=== PATIENT | female | born 1980 | race Caucasian/White ===

== ENCOUNTER → 2016-09-24 | Day surgery (SDC) | payer BC ==
[~2016-09-24] VITALS: Ht 167.6 cm; Wt 80.9 kg
[~2016-09-24] MED LIST: ACETAMINOPHEN 1000 MG/100 ML VIAL IV SCH; CHLORHEXIDINE GLUCONATE 2 % 1 PACK (2 CLOTHS) TOPICAL PRN; DO NOT ADM ANY ANTICOAGULANT DRUGS PRN; FAMOTIDINE 20 MG/2 ML VIAL ONE; INSULIN HUMAN REGULAR 1,000 UNITS/10 ML VIAL SQ PRN; KETOROLAC TROMETHAMINE 60 MG/2 ML (IM) VIAL IM ONE; LACTATED RINGER'S 1000 ML IV PRN; METOCLOPRAMIDE HCL 10 MG/2 ML VIAL IV PRN; METOPROLOL TARTRATE 25 MG TAB PO PRN; MIDAZOLAM HCL 2 MG/2 ML VIAL ONE; ONDANSETRON HCL 4 MG/2 ML VIAL IV PUSH ONE; OXYC1SOL5 PO; OXYTOCIN 10 UNIT/ML AMP ONE; POVIDONE IODINE 5% (ANTISEPSIS KIT) 4 APPLICATIONS EACH NARE PRN; PRENCAP10 PO; PRENCHW; PROPOFOL 200 MG/20 ML AMP IV ONE; SODIUM CHLORID 0.9% 500 ML IV PRN; ceFAZolin 1,000 MG/NS 100 ML IV SCH; fentaNYL CITRATE 250 MCG/5 ML AMP ONE
[2016-09-24 12:03] VITALS: BP 111/71; PULSE 80; RESP 20; TEMP 98.4; O2SAT 100
[2016-09-24 12:19] LABS: AUTOMATED NEUTROPHIL # 5.2 TH/MM3 (1.8-7.7); BASOPHIL % 0.3 % (0.0-2.0); EOSINOPHIL # 0.2 TH/MM3 (0-0.4); EOSINOPHIL % 2.3 % (0.0-4.0); HEMATOCRIT 36.6 % (35.0-46.0); HEMO FLAGS DIFF FINAL; LYMPHOCYTE # 2.1 TH/MM3 (1.0-4.8); MEAN CELL VOLUME 88.2 FL (80.0-100.0); MEAN CORPUSCULAR HEMOGLOBIN 30.6 PG (27.0-34.0); MEAN CORPUSCULAR HGB CONC 34.7 % (32.0-36.0); MONO % 5.9 % (0.0-8.0); NEUT % 65.5 % (16.0-70.0); PLATELET COUNT 214 TH/MM3 (150-450); RED BLOOD COUNT 4.15 MIL/MM3 (4.00-5.30); RED CELL DISTRIBUTION WIDTH 12.7 % (11.6-17.2)
[2016-09-24 12:34] LABS: BACTERIA, URINE RARE /hpf; COMMENT (UR) CULT NOT INDICATED; CULTURE IF INDICATED CULT NOT INDICATED; MUCUS URINE FEW /lpf (OCC); SQUAMOUS EPITHELIAL CELL URINE 5 /hpf (0-5)
[2016-09-24 12:37] LABS: GLUCOSE,URINE NEG (NEG); URINE COLOR YELLOW (YELLW/STRAW)
[2016-09-24 12:38] LABS: BLOOD, URINE NEG (NEG); KETONE, URINE NEG (NEG); NITRITE,URINE NEG (NEG)
--- NOTE | 2016-09-24 13:10 | MH ---
cc: RUDDY ROBINS DATE OF ADMISSION: 09/24/2016 DATE OF : 1980 ADMITTING DIAGNOSIS Spontaneous at 7-8 weeks gestation. HISTORY OF PRESENT ILLNESS The patient is a 36-year-old female para 1-0-1-1 with an LMP of 07/14/2016. Ultrasound on 09/02/2016 showed a VIP of six weeks and seven days. A follow-up ultrasound on 09/23/2016 showed demise at seven weeks and one day. She is now admitted for a D&C. PAST MEDICAL HISTORY PREVIOUS SURGERY She had a D&C for miscarriage in 2013, had a in 2014. MEDICATIONS 1. Vitamins. 2. Progesterone. ALLERGIES SHELLFISH. SERIOUS MEDICAL ILLNESSES Fracture left upper extremity age 3, did not require surgery. SOCIAL HISTORY She is . She is a dentist. Alcohol, tobacco and drugs are none. FAMILY HISTORY Noncontributory. PHYSICAL EXAMINATION GENERAL: A well-nourished, well-developed female. VITAL SIGNS: Stable. HEENT: Exam is normal. CHEST: Clear. HEART: Regular rate. BREASTS: Symmetrical. ABDOMEN: Benign. PELVIC: Normal external genitalia and BUS. Vagina is normal. Cervix is normal. She is 8 weeks size, nontender. ASSESSMENT As above. PLAN She is now admitted for outpatient D&C. While in the office I explained the procedures, the risks, benefits and complications. The patient elected to proceed. MD VINCENT Denise/KORTNEY /1:45 PM /1:09 PM
[2016-09-24 15:10] VITALS: BP 106/68; PULSE 75; RESP 16; TEMP 98; O2SAT 100
--- NOTE | 2016-09-25 07:04 | MP ---
cc: RUDDY ROBINS DATE OF SURGERY 09/24/2016 ADMISSION DIAGNOSIS demise at 7-8 weeks. POSTOPERATIVE DIAGNOSIS demise at 7-8 weeks. PROCEDURE A suction and sharp D&C. ANESTHESIA General LMA ESTIMATED BLOOD LOSS 100 cc FLUIDS 600 cc Crystalloid OBJECTIVE FINDINGS Following induction of adequate general LMA anesthesia, the patient was prepped and draped supine on the operating table dorsolithotomy position in the usual sterile fashion with the bladder being drained via in and out catheterization. Exam under anesthesia revealed a 7-8 week sized uterus. No adnexal masses. A heavy weighted speculum was placed in the posterior fornix of the vagina. The anterior lip of the cervix grasped with a single-toothed tenaculum. Cervix and uterus sounded to 9 cm. The cervix was then dilated to #18 Hanks dilator. A #8 suction curette was passed to remove POC-like material followed by a small sharp curette to dislodge adherent tissue. The curette was passed again to potato picker lose debris. All instruments removed. All counts were correct. The patient's legs taken out of the stirrups. She was awakened and taken to the recovery room in good condition. MD VINCENT Denise/YUNG /9:21 PM /7:00 AM
== END | disposition home or self-care (01) ==
LOC: HSDC 10:59
PROVIDERS: ATTEND Obstetrics & Gynecology
DX: O03.4 Incomplete spontaneous abortion without complication (principal)
CPT/HCPCS: 01965; 59812; 81001; 85025; 86850; 86900; 86901; 88305; J0131; J0690; J1885; J2250; J2405; J2590; J3010; 88235; 88267; 88291

== ENCOUNTER 2017-05-07 00:35 | Emergency (ER) | payer BC ==
[~2017-05-07] VITALS: Ht 167.6 cm; Wt 80.0 kg
[~2017-05-07 00:35] MED LIST changes: -ACETAMINOPHEN 1000 MG/100 ML VIAL IV SCH; -CHLORHEXIDINE GLUCONATE 2 % 1 PACK (2 CLOTHS) TOPICAL PRN; -DO NOT ADM ANY ANTICOAGULANT DRUGS PRN; -FAMOTIDINE 20 MG/2 ML VIAL ONE; -INSULIN HUMAN REGULAR 1,000 UNITS/10 ML VIAL SQ PRN; -KETOROLAC TROMETHAMINE 60 MG/2 ML (IM) VIAL IM ONE; -LACTATED RINGER'S 1000 ML IV PRN; -METOCLOPRAMIDE HCL 10 MG/2 ML VIAL IV PRN; -METOPROLOL TARTRATE 25 MG TAB PO PRN; -MIDAZOLAM HCL 2 MG/2 ML VIAL ONE; -ONDANSETRON HCL 4 MG/2 ML VIAL IV PUSH ONE; -OXYC1SOL5 PO; -OXYTOCIN 10 UNIT/ML AMP ONE; -POVIDONE IODINE 5% (ANTISEPSIS KIT) 4 APPLICATIONS EACH NARE PRN; -PRENCAP10 PO; -PROPOFOL 200 MG/20 ML AMP IV ONE; -SODIUM CHLORID 0.9% 500 ML IV PRN; -ceFAZolin 1,000 MG/NS 100 ML IV SCH; -fentaNYL CITRATE 250 MCG/5 ML AMP ONE
[2017-05-07 00:38] VITALS: BP 144/74; PULSE 90; RESP 16; TEMP 99; O2SAT 100
[2017-05-07] MEDS ORDERED: PROG100C PO (00:42)
[2017-05-07] MEDS ORDERED: SODIUM CHLOR 0.9% 1000 ML INJ 1,000 ML IV ONE (00:52)
--- NOTE | 2017-05-07 01:10 | PD ---
HPI Chief Complaint: Skirt Clipper Problem/Complaint Time Seen by Provider: 00:49 Travel History International Travel<30 days: No Contact w/Intl Traveler<30days: No Traveled to known affect area: No History of Present Illness HPI The patient is a 36 year old female with 2 prior miscarriages who presents to the [facility] emergency department with a history of vaginal spotting that she first noticed at midnight when she got up to go to the bathroom and wiped. She denies having any abdominal pain associated with this. She reports that she last had sex on Friday night. She reports that she did have a slight amount of spotting at that time. She reports that her WINE STEWARD/STEWARDESS is Dr. Ej ruiz. She reports that her last menstrual cycle was March 27 2017. She reports that she is on progesterone to support the . She reports that her last quantitative beta-hCG did go up compared to the prior one. She reports that over the last 2 days she has had increased nausea that she thought was related to the . She also reports that she has associated breast tenderness. On review of systems otherwise, she denies any recent fevers, cough, congestion, neck pain, chest pain, shortness of breath, vomiting, diarrhea, urinary symptoms, or neurologic symptoms. [facility] Past Medical History Narrative Medical The patient's past medical history is reportedly none. Medical History: Denies Significant Hx Cancer: No Cardiovascular Problems: No Diabetes: No Diminished Hearing: No Endocrine: No Genitourinary: No Hepatitis: No Hiatal Hernia: No Immune Disorder: No Musculoskeletal: No Neurologic: No Psychiatric: No Respiratory: No Thyroid Disease: No Tetanus Vaccination: < 5 Years ?: LMP: 03/27/2017 6 weeks Dilation and Curettage (D&C): Yes Past Surgical History Narrative Surgical The patient's past surgical history is significant for Lasik eye surgery, C- section 1, D&C 2. Section: Yes Eye Surgery: Yes (LASIK) Gynecologic Surgery: Yes (D&C, C section) Joint Replacement: No Pacemaker: No Social History Alcohol Use: No Tobacco Use: No Substance Use: No Allergies-Medications (Allergen,Severity, Reaction): Coded Allergies: cat dander (Unverified Allergy, Severe, HIVES, 05/07/17) dog dander (Unverified Allergy, Severe, HIVES, 05/07/17) shellfish derived (Unverified Allergy, Severe, HIVES, 05/07/17) Reported Meds & Prescriptions Reported Meds & Active Scripts Active Reported Progesterone Micronized 100 Mg Cap 100 Mg PO BID 19 ( Vit W/ Ferrous Fumara) 1 Chw Chw Review of Systems Except as stated in HPI: all other systems reviewed are Neg General / Constitutional: No: Fever Eyes: No: Visual changes HENT: No: Headaches Cardiovascular: No: Chest Pain or Discomfort Respiratory: No: Shortness of Breath Gastrointestinal: Positive: Nausea, No: Vomiting, Diarrhea, Abdominal Pain Genitourinary: Positive: Vaginal Bleeding, No: Dysuria Musculoskeletal: No: Pain Skin: No Rash Neurologic: No: Weakness Psychiatric: No: Depression Endocrine: No: Polydipsia Hematologic/Lymphatic: No: Easy Bruising Physical Exam Narrative General: The patient is a well-developed well-nourished female in no acute distress. Head and Neck exam: Head is normocephalic atraumatic. Eyes: EOMI, pupils are equal round and reactive to light. Nose: Midline septum with pink mucous membranes Mouth: Dentition unremarkable. Moist mucus membranes. Posterior oropharynx is not erythematous. No tonsillar hypertrophy. Uvula midline. Airway patent. Neck: No palpable lymphadenopathy. No nuchal rigidity. No thyromegaly. Cardiovascular: Regular rate and rhythm without murmurs, gallops, or rubs. Lungs: Clear to auscultation bilaterally. No wheezes, rhonchi, or rales. Abdomen: Soft, without tenderness to palpation in all 4 quadrants of the abdomen. No guarding, rebound, or rigidity. Normal bowel sounds are audible. No tenderness on palpation of McBurney's point. Extremities: No clubbing, cyanosis, or edema. Tenderness on palpation. Back: No costovertebral angle tenderness to palpation. Neurologic Exam: Grossly nonfocal. Skin Exam: No rash noted. Intact skin that is warm and dry. Gynecologic exam: The patient was placed in the dorsal lithotomy position. Her external genitalia were examined. She had no evidence of rash or lesions. The speculum was placed into her vagina and the cervix was identified. She had a scant amount of older appearing blood in the posterior vaginal vault. No cervical friability. On Bimanual exam: she has no cervical motion tenderness. No adnexal tenderness or prominence noted on palpation. The patient's uterus is slightly enlarged palpation, nontender on palpation. Data Data Last Documented VS Vital Signs Date Time Temp Pulse Resp B/P (MAP) Pulse Ox O2 Delivery O2 Flow Rate FiO2 05/07/17 00:38 99.0 90 16 144/74 (97) 100 Orders Orders Beta Hcg (Quant/Titer) (05/07/17 00:52) Complete Blood Count With Diff (05/07/17 00:52) Comprehensive Metabolic Panel (05/07/17 00:52) Gc And Chlamydia Pcr (05/07/17 00:52) Complete Rh (05/07/17 00:52) Us Pelvis (Ques Pr/Ect)W Trans (05/07/17 ) Wet Prep Profile (05/07/17 00:52) Urinalysis - C+S If Indicated (05/07/17 00:52) Iv Access Insert/Monitor (05/07/17 00:52) Ecg Monitoring (05/07/17 00:52) Sodium Chlor 0.9% 1000 Ml Inj (Ns 1000 M (05/07/17 00:52) Ed Urine Pregnancytest Poc (05/07/17 00:52) Ed Discharge Order (05/07/17 04:42) Labs Laboratory Tests Test 05/07/17 01:15 05/07/17 01:25 White Blood Count 8.2 TH/MM3 Red Blood Count 4.09 MIL/MM3 Hemoglobin 12.6 GM/DL Hematocrit 37.1 % Mean Corpuscular Volume 90.7 FL Mean Corpuscular Hemoglobin 30.9 PG Mean Corpuscular Hemoglobin Concent 34.1 % Red Cell Distribution Width 12.9 % Platelet Count 169 TH/MM3 Mean Platelet Volume 9.8 FL Neutrophils (%) (Auto) 62.4 % Lymphocytes (%) (Auto) 24.6 % Monocytes (%) (Auto) 9.9 % Eosinophils (%) (Auto) 2.7 % Basophils (%) (Auto) 0.4 % Neutrophils # (Auto) 5.1 TH/MM3 Lymphocytes # (Auto) 2.0 TH/MM3 Monocytes # (Auto) 0.8 TH/MM3 Eosinophils # (Auto) 0.2 TH/MM3 Basophils # (Auto) 0.0 TH/MM3 CBC Comment DIFF FINAL Differential Comment Urine Color YELLOW Urine Turbidity CLEAR Urine pH 6.5 Urine Specific [place] 1.023 Urine Protein TRACE mg/dL Urine Glucose (UA) NEG mg/dL Urine Ketones NEG mg/dL Urine Occult Blood MOD Urine Nitrite NEG Urine Bilirubin NEG Urine Urobilinogen LESS THAN 2.0 MG/DL Urine Leukocyte Esterase TRACE Urine RBC 13 /hpf Urine WBC 1 /hpf Urine Squamous Epithelial Cells 1 /hpf Urine Mucus FEW /lpf Microscopic Urinalysis Comment CULT NOT INDICATED Blood Urea Nitrogen 11 MG/DL Creatinine 0.80 MG/DL Random Glucose 108 MG/DL Total Protein 6.8 GM/DL Albumin 3.1 GM/DL Calcium Level 8.4 MG/DL Alkaline Phosphatase 71 U/L Aspartate Amino Transf (AST/SGOT) 17 U/L Alanine Aminotransferase (ALT/SGPT) 23 U/L Total Bilirubin 0.2 MG/DL Sodium Level 138 MEQ/L Potassium Level 3.6 MEQ/L Chloride Level 104 MEQ/L Carbon Dioxide Level 26.5 MEQ/L Anion Gap 8 MEQ/L Estimat Glomerular Filtration Rate 81 ML/MIN Human Chorionic Gonadotropin, Quant 04478 MIU/ML Clue Cells (Wet Prep) NONE SEEN Vaginal Trichomonas (Wet Prep) NONE SEEN Vaginal Yeast (Wet Prep) NONE SEEN Chlamydia trachomatis DNA (PCR) NOT DETECTED Neisseria gonorrhoeae DNA (PCR) NOT DETECTED MDM Medical Decision Making Medical Screen Exam Complete: Yes Emergency Medical Condition: Yes Medical Record Reviewed: Yes Differential Diagnosis Ectopic , versus threatened miscarriage, versus postcoital bleeding, versus subchorionic hemorrhage Narrative Course During the course of the patients emergency department visit, the patients history, examination, and differential diagnosis were reviewed with the patient. The patient was placed on a patient monitor with oximetry and frequent blood pressure monitoring. The patient had IV access obtained and blood work sent for analysis. A bedside test was positive. A quantitative beta hCG was also ordered. An ultrasound to rule out ectopic has been ordered. The patient was initially provided normal saline 1 L IV fluid bolus. The patients laboratory studies were reviewed and remarkable for white count of 8.2, hemoglobin 12.6, platelets 169 with 9.9 monocytes, CMP is remarkable for a GFR of 81, glucose 108, calcium 8.4, quantitative beta hCG 17,047, urinalysis showed moderate occult blood, 13 RBCs, wet prep is negative. Radiology studies were reviewed and remarkable for an ultrasound of the pelvis that shows an early viable intrauterine with a small subchorionic hemorrhage, left ovarian corpus luteal cyst, heart rate is 126, 5 week 6 day gestational age. The patient is instructed on bed rest and pelvic rest. The patient's blood type was noted to be Rh+, therefore RhoGAM was not indicated. The patient is instructed regarding the importance of close follow-up with her WINE STEWARD/STEWARDESS. The patient is resting comfortably and feels better, is alert and in no distress. The patients results and examination findings were discussed with the patient. The repeat examination is unremarkable and benign. The history, exam, diagnostic testing, and current condition do not suggest any significant pathology to warrant further testing, continued ED treatment, admission, or surgical evaluation at this point. The vital signs have been stable. The patient does not have uncontrollable pain, intractable vomiting, or other significant symptoms. The patient's condition is stable and appropriate for discharge. The patient will pursue further outpatient evaluation with a primary care physician or other designated or consulting physician as indicated in the discharge instructions. The patient expressed understanding and was agreeable with this plan. Diagnosis Primary Impression: Threatened miscarriage in early Additional Impression: Subchorionic bleed Qualified Codes: O41.8X10 - Other specified disorders of amniotic fluid and membranes, first trimester, not applicable or unspecified; O46.8X1 - Other antepartum hemorrhage, first trimester Referrals: Branding Specialist 2 days Patient Instructions: General Instructions, Threatened Miscarriage (ED) Departure Forms: Tests/Procedures, Work Release Enter return to work date: May 14, 2017 Additional Instructions: The patient is instructed on bed rest and pelvic rest. Med/Other Pt SpecificInfo: No Change to Meds Disposition: 01 DISCHARGE HOME Condition: Stable Candy Chinchilla MD May 07, 2017 01:10
[2017-05-07 01:33] LABS: AUTOMATED NEUTROPHIL # 5.1 TH/MM3 (1.8-7.7); BASOPHIL % 0.4 % (0.0-2.0); EOSINOPHIL # 0.2 TH/MM3 (0-0.4); EOSINOPHIL % 2.7 % (0.0-4.0); HEMATOCRIT 37.1 % (35.0-46.0); HEMO FLAGS DIFF FINAL; LYMPH % 24.6 % (9.0-44.0); MEAN CELL VOLUME 90.7 FL (80.0-100.0); MEAN CORPUSCULAR HEMOGLOBIN 30.9 PG (27.0-34.0); MEAN CORPUSCULAR HGB CONC 34.1 % (32.0-36.0); MONO % 9.9 % (0.0-8.0); NEUT % 62.4 % (16.0-70.0); PLATELET COUNT 169 TH/MM3 (150-450); RED BLOOD COUNT 4.09 MIL/MM3 (4.00-5.30); RED CELL DISTRIBUTION WIDTH 12.9 % (11.6-17.2); WHITE BLOOD COUNT 8.2 TH/MM3 (4.0-11.0)
[2017-05-07 01:36] LABS: BLOOD, URINE MOD (NEG); COMMENT (UR) CULT NOT INDICATED; CULTURE IF INDICATED CULT NOT INDICATED; GLUCOSE,URINE NEG (NEG); KETONE, URINE NEG (NEG); MUCUS URINE FEW /lpf (OCC); NITRITE,URINE NEG (NEG); PH, URINE 6.5 (5.0-8.5); SQUAMOUS EPITHELIAL CELL URINE 1 /hpf (0-5); URINE COLOR YELLOW (YELLW/STRAW)
[2017-05-07 01:51] LABS: ALT (GPT) 23 U/L (10-53); ANION GAP 8 MEQ/L (5-15); AST (GOT) 17 U/L (15-37); BICARBONATE 26.5 MEQ/L (21.0-32.0); BLOOD UREA NITROGEN 11 MG/DL (7-18); CHLORIDE 104 MEQ/L (98-107); GLOMERULAR FILTRATION RATE 81 ML/MIN (>89); POTASSIUM 3.6 MEQ/L (3.5-5.1); SODIUM (NA) 138 MEQ/L (136-145)
[2017-05-07 02:08] LABS: ALKALINE PHOSPHATASE 71 U/L (45-117); BETA HCG QUANT 17047 MIU/ML (0-5); TOTAL BILIRUBIN ADULT 0.2 MG/DL (0.2-1.0)
[2017-05-07 03:18] LABS: CHLAMYDIA PCR NOT DETECTED (NOT DETECT); NEISSERIA PCR NOT DETECTED (NOT DETECT)
--- NOTE | 2017-05-07 04:40 | RADRPT ---
EXAM DATE/TIME: 05/07/2017 03:25 [place] COMPARISON: No previous studies available for comparison. INDICATIONS : Bleeding with . LAB(S): Beta-hC MEDICAL HISTORY : . Miscarriage x 2. SURGICAL HISTORY : section. Dilation and curettage x 2. Lasik. ENCOUNTER: Initial ACUITY: 1 day PAIN SCORE: 0/10 LOCATION: Bilateral pelvis MEASUREMENTS: UTERUS: 8.6 x 7.6 x 4.4 cm ENDOMETRIAL STRIPE: 17 mm RIGHT OVARY: 2.8 x 2.6 x 1.9 cm LEFT OVARY: 3.5 x 2.9 x 1.8 cm FREE FLUID: Yes Trace in posterior cul de sac and adjacent to the left ovary. CROWN RUMP LENGTH: 0.28 cm = 5 WKS 6 DAYS FHR: 126 BPM FINDINGS: UTERUS: Gestational sac, yolk sac and pole seen within the uterine cavity. pole is approximately 2.8 mm which corresponds to a gestational age of 5 weeks 6 days. There is an approximately 16mm heter ogeneous fluid collection adjacent to the gestational sac. RIGHT OVARY: Normal. LEFT OVARY: 9 mm cyst, probably a corpus luteal cyst. MISCELLANEOUS: Trace fluid in the posterior cul-de-sac. CONCLUSION: 1. Early, viable intrauterine with a small subchorionic hemorrhage. 2. No evidence of ectopic or other acute adnexal abnormality demonstrated. 9 mm left ovary corpus lut eal cyst. Poli Rios MD on May 07, 2017 at 4:36 Board Certified Radiologist. This report was verified electronically.
[2017-05-07 05:04] VITALS: BP 134/70; PULSE 72; RESP 18; O2SAT 99
== END 2017-05-07 05:05 | disposition home or self-care (01) ==
LOC: NEPE 00:35
DX: O20.0 Threatened abortion (principal); R11.0 Nausea; O09.521 Supervision of elderly multigravida, first trimester; Z3A.01 Less than 8 weeks gestation of pregnancy
CPT/HCPCS: 76700; 76817; 80053; 81001; 84702; 84703; 85025; 86901; 87210; 87491; 87591; 99285; J7030

== ENCOUNTER → 2017-06-25 | Outpatient (CLI) | payer BC ==
[~2017-06-25] MED LIST changes: +PROG100C PO
== END ==
LOC: HPND 08:55
PROVIDERS: ATTEND Obstetrics & Gynecology
DX: O09.521 Supervision of elderly multigravida, first trimester (principal); O34.211 Maternal care for low transverse scar from previous cesarean delivery; O26.21 Pregnancy care for patient with recurrent pregnancy loss, first trimester; Z36.82 Encounter for antenatal screening for nuchal translucency
CPT/HCPCS: 36415; 76813

== ENCOUNTER 2017-12-25 14:59 | Inpatient (IN) ==
[~2017-12-25 14:59] MED LIST changes: +Ketorolac Inj 30 MG/ML (IVP) Vial IV.PUSH ONE; -PRENCHW; -PROG100C PO; +Phenylephrine/NS 1000 MCG/10ML Syringe IV.PUSH ONE
[2017-12-25 16:08] LABS: Baso % (Auto) 0.3 % (0.0-2.0); Eos % (Auto) 0.4 % (0.0-4.0); Hematocrit 36.7 % (35.0-46.0); Hemoglobin 12.5 gm/dL (11.6-15.3); Lymph # (Auto) 1.7 th/mm3 (1.0-4.8); Lymph % (Auto) 17.2 % (9.0-44.0); Mean Corpuscular HGB Conc 33.9 % (32.0-36.0); Mean Corpuscular Hemoglobin 31.3 pg (27.0-34.0); Mean Corpuscular Volume 92.2 fL (80.0-100.0); Mean Platelet Volume 8.8 fL (7.0-11.0); Mono # (Auto) 0.6 th/mm3 (0.0-0.9); Mono % (Auto) 6.3 % (0.0-8.0); Neut # (Auto) 7.5 th/mm3 (1.8-7.7); Neut % (Auto) 75.8 % (16.0-70.0); Platelet Count 195 th/mm3 (150-450); Red Blood Count 3.98 mil/mm3 (4.00-5.30); Red Cell Distribution Width 14.7 % (11.6-17.2); White Blood Count 9.9 th/mm3 (4.0-11.0)
[2017-12-25 16:14] LABS: Bilirubin,Urine Negative (Negative); Clarity,Urine Hazy (Clear); Color,Urine Yellow (Yellw/Straw); Glucose,Urine (UA) Negative (Negative); Leukocyte Esterase,Urine Negative (Negative); Mucus,Urine Few /lpf (Occasional); Nitrite,Urine Negative (Negative); Specific Gravity,Urine 1.026 (1.002-1.035); Squamous Epithelial Cell,Urine 1 /hpf (0-5)
[2017-12-25 16:26] LABS: Amphetamine Screen,Urine Neg (Neg); Barbiturate Screen,Urine Neg (Neg); Cannabinoid Screen,Urine Neg (Neg); Cocaine Screen,Urine Neg (Neg)
[2017-12-25 16:36] LABS: Opiate Screen,Urine Neg (Neg)
[2017-12-25] MEDS ORDERED: fentaNYL Citrate Inj 100 MCG/2 ML Ampul ONE (16:46)
[2017-12-25] MEDS ORDERED: Morphine Sulfate PF Inj 5 MG/10 ML Ampul ONE (16:46)
[2017-12-25] MEDS ORDERED: Citric Acid/Sodium Citrate Liq 30 ML UDC PO SCH (17:00)
[2017-12-25] MEDS ORDERED: ceFAZolin 2 GM Premix Inj 2 GM/50 ML PIGGYBACK IV.SIG SCH (17:00)
--- NOTE | 2017-12-25 18:38 | MP ---
cc: Poli Hathaway MD, John A MD DATE OF OPERATION: 12/25/2017 PREOPERATIVE DIAGNOSES: 1. Term . 2. Previous section. 3. Advanced maternal age. 4. Multiparity. POSTOPERATIVE DIAGNOSES: 1. Term . 2. Previous section. 3. Advanced maternal age. 4. Multiparity. 5. Delivered. PROCEDURE PERFORMED: Repeat low transverse section with a bilateral tubal interruption. ANESTHESIA: Spinal. SURGEON: Poli Hathaway MD CAFETERIA MONITOR: Mare Jaramillo. ESTIMATED BLOOD LOSS: About 600 mL FLUIDS: About 2 liters crystalloid. OBJECTIVE FINDINGS: Following induction of adequate spinal anesthesia, the patient was prepped and draped supine on the operating table in left lateral tilt position usual sterile fashion, with the bladder being drained by Pollack catheterization. The abdomen was opened through a Pfannenstiel incision using a knife to cut down through the skin to the fascia excising her old scar in the process. The fascia was opened transversely, stripped from the muscles, rectus muscle split in the midline and the peritoneum opened sharply without incident. The bladder flap was taken down sharply and retracted inferior with the Karen blade. The lower uterine segment was incised transversely with a knife and extended with blunt dissection. Membranes were ruptured, contained meconium-stained fluid. Baby was in LOT position. The vacuum extractor applied to the occiput and used to deliver the head through the abdominal wound. Mouth was suctioned, cord clamped and cut and the baby passed to awaiting team, a viable, vigorous female, Apgars were 8 and 9, weight 5 pounds 14 ounces. Cord blood sent for typing. The placenta sent for donation and uterine cavity cleaned with laps. Uterus exteriorized and the uterine wound was then closed in 2 layers running suture, first in a running locking stitch of 0 Vicryl, second with running imbricating stitch of 0 Vicryl. The patient reaffirmed her desire for the tubal. The wound was packed with a lap. The left fallopian tube was traced to the normal left ovary, a window made in the mesosalpinx of the fimbria with the Bovie. The vascular pedicle and fimbria were doubly clamped with the Kellys and the distal tube with hemostat. The distal tube excised with scissors for permanent study. The vascular pedicle and fimbria were ligated with 2 free ties of 2-0 chromic. The proximal tube was ligated with 2-0 chromic and buried in uterine fundus in Steffen fashion with a second suture of 2-0 chromic used to further affixed the tube to the fundus and the same on the right. Posterior inspection was normal. Uterus was now replaced in abdominal cavity. Irrigation performed. No bleeding was evident and the bladder flap was closed with running stitch of 3-0 Vicryl. Inspection of the tubal sites revealed they were intact with no bleeding. All laps and retractors were removed. Counts were correct. The anterior peritoneum was closed with a running stitch of 2-0 Vicryl. Fascia closed with a running locking stitch of 0 Vicryl corner to midline and tied, subcu with running 3-0 Vicryl and the skin with a running subcu 3-0 Monocryl. Dermabond was applied. All counts were correct and the patient was awakened and taken to the recovery room in good condition. MD VINCENT Denise/ , 06:19 PM , 06:36 PM ABEL
[2017-12-25] MEDS ORDERED: Simethicone 80 MG Chew Tablet PO PRN (19:22)
[2017-12-25] MEDS ORDERED: Zolpidem Tartrate 5 MG Tablet PO PRN (19:22)
[2017-12-25] MEDS ORDERED: Senna/Docusate Sodium 8.6/50 MG Tablet PO PRN (19:22)
[2017-12-25] MEDS ORDERED: Oxytocin 30 Units/500ml Premix 30 UNITS/500 ML BAG IV.SIG ONE (19:22)
[2017-12-25] MEDS ORDERED: Ketorolac Inj 30 MG/ML (IVP) Vial IV.PUSH PRN (19:31)
[2017-12-25] MEDS ORDERED: Naloxone Inj 0.4 MG/ML Vial IV.PUSH PRN (21:53)
[2017-12-26] MEDS ORDERED: Oxytocin 30 Units/500ml Premix 30 UNITS/500 ML BAG IV.SIG PRN (00:22)
[2017-12-26] MEDS: Ibuprofen 600 MG Tablet PO PRN ×3 (05:33→18:10)
[2017-12-26] MEDS ORDERED: Diphtheria/Tetanus/Pertussis Vaccine Inj 0.5 ML Syringe IM ONE (16:00)
[2017-12-26] MEDS ORDERED: Measles/Mumps/Rubella Vaccine Inj 0.5 ML Vial SQ ONE (16:00)
[2017-12-26 17:52] LABS: Hematocrit 34.2 % (35.0-46.0); Hemoglobin 11.5 gm/dL (11.6-15.3); Mean Corpuscular HGB Conc 33.7 % (32.0-36.0); Mean Corpuscular Hemoglobin 31.6 pg (27.0-34.0); Mean Corpuscular Volume 93.9 fL (80.0-100.0); Mean Platelet Volume 8.4 fL (7.0-11.0); Platelet Count 179 th/mm3 (150-450); Red Blood Count 3.65 mil/mm3 (4.00-5.30); Red Cell Distribution Width 14.7 % (11.6-17.2); White Blood Count 9.3 th/mm3 (4.0-11.0)
[2017-12-27] MEDS: Acetaminophen 325 MG Tablet PO PRN ×3 (00:20→13:05)
[2017-12-27] MEDS: Ibuprofen 600 MG Tablet PO PRN ×3 (00:20→13:05)
--- NOTE | 2017-12-27 13:54 | P.DS ---
Date of admission: 12/25/17 14:59 Primary care physician: Angela Pineda Attending physician on discharge: Poli Hathaway Anticipated date of discharge: 12/27/17 Brief History from admission: Pt admitted for a repeat c/s, surgery uneventful, post op course wnl, discharge home with motrin and tylenol, pelvic rest, fu next wk with Dr. Hathaway DS: Summary - Time Spent with Patient Total time spent providing and/or coordinating discharge services: Exam Vital signs: Vital Signs 12/26/17 16:00 12/26/17 19:55 12/27/17 08:26 Temperature 98.2 F 98.0 F Pulse Rate 85 76 78 Respiratory Rate 18 Blood Pressure 108/62 109/70 117/66 12/27/17 08:27 Temperature 98.0 F Pulse Rate Respiratory Rate Blood Pressure Intake & Output 12/26/17 12/27/17 12/27/17 18:59 06:59 18:59 Intake Total 200 / 200 Balance 200 / 200 Intake: IV 200 / 200 Ofirmev Inj 1,000 mg In 100 ml 100 / 100 @ 400 mls/hr IV.SIG Q8H COURTNEY Rx# :[id number] Ancef Inj 1,000 MG In NS Inj 100 / 100 100 ML @ 200 mls/hr IV.SIG Q8H COURTNEY Rx#:[id number] Results Labs on day of discharge: Labs from last 24 hours 12/26/17 17:30 WBC 9.3 RBC 3.65 L Hgb 11.5 L Hct 34.2 L MCV 93.9 MCH 31.6 MCHC 33.7 RDW 14.7 Plt Count 179 MPV 8.4 Discharge Plan - Discharge Disposition Patient Disposition: 01 Discharge Home - Discharge Condition Condition: Good - Discharge Order Discharge Orders: Discharge Order (Routine); Ordered 12/27/17 Ordered By: Katheryn London - Discharge Details Anticipated Discharge Date: 12/27/17 - Physicians Team Primary Care Provider: Angela Pineda Attending Provider: Poli Hathaway - Rxs /Orders / Referrals /Forms Prescriptions: No Action iron 1 tab PO DAILY PNV #[id number] 1 tab PO DAILY Referrals: Angela Pineda MD [Primary Care Provider] - See Instructions - Discharge Instructions Patient Printed Instructions: Preeclampsia and Eclampsia After Delivery (GEN), (GEN) Additional Instructions: Please follow up with Dr. Hathaway. Please call his office [facility] to make appointment.
[2017-12-28] MEDS ORDERED: PNV IRON FOLIC ACID OMEGA3 PO SCH (09:00)
[2017-12-28] MEDS ORDERED: IRON PO SCH (09:00)
== END 2017-12-27 16:43 | disposition home or self-care (01) ==
LOC: H2E 14:59 → H1EA 20:52 → UNDODISIN 12-26 10:46
PROVIDERS: ADMIT Obstetrics & Gynecology; ATTEND Obstetrics & Gynecology